=== PATIENT | male | born 1980 | race Caucasian/White ===

== ENCOUNTER 2019-08-23 06:21 | Day surgery (SDC) | payer OTHER ==
[~2019-08-23 06:21] MED LIST: Buffered Lidocaine 1% SYRIN* 1 ML/SYRINGE INTRADERM ONE; Dexamethasone IV* 4 MG/ML 1 ML (4 MG) IV SLOW PU ONE; Dexamethasone IV* 4 MG/ML 1 ML (4 MG) ONE; Famotidine IV* 10 MG/ML 2 ML (20 mg) IV ONE; Famotidine IV* 10 MG/ML 2 ML (20 mg) ONE; Lactated Ringers 1000 ML Bag* 1,000 ML IV SCH
[2019-08-23] MEDS ORDERED: ceFAZolin 2 GM PREMIX in ORs 2 GM/50 ML BAG ONE (06:32)
[2019-08-23] MEDS ORDERED: Lidocaine 1% INJ* 10 MG/ML 30 ML SDV ONE ×2 (07:09→08:07)
[2019-08-23] MEDS ORDERED: Bupivacaine 0.25% SDV* 30 ML ONE (07:10)
[2019-08-23] MEDS ORDERED: Dexamethasone IV* 4 MG/ML 1 ML (4 MG) ONE (07:10)
[2019-08-23] MEDS ORDERED: fentaNYL* 50 MCG/ML 2 ML VIAL (100 MCG VIAL) ONE (07:14)
[2019-08-23] MEDS ORDERED: Midazolam* 1 MG/ML 5 ML VIAL (5 MG) ONE (07:14)
[2019-08-23] MEDS ORDERED: Lidocaine 2% PF * 5 ML VIAL ONE (07:15)
[2019-08-23] MEDS ORDERED: Propofol* 10 MG/ML 20 ML BTL ONE (07:15)
[2019-08-23] MEDS ORDERED: KETAMINE HCL* 50 MG/ML 10 ML VIAL ONE (07:38)
[2019-08-23] MEDS ORDERED: Midazolam* 1 MG/ML 2 ML VIAL (2 MG) ONE (07:42)
[2019-08-23 10:16] VITALS: BP 132/79
--- NOTE | 2019-08-24 00:31 | OP ---
DATE OF OPERATION: 08/23/19 [facility] DATE OF : 78 SURGEON: Jong Cedeno DPM ANESTHESIA: MAC local. PRE-OP DIAGNOSIS: Right foot plantar fascitis. POST-OP DIAGNOSIS: Right foot plantar fascitis. OPERATIVE PROCEDURE: Plantar fasciotomy. ESTIMATED BLOOD LOSS: Less than 10 cc. IV FLUIDS: LR 1000 cc. DRAINS: None. SPECIMENS: None. DESCRIPTION OF PROCEDURE: The patient was taken to the operating room was placed in a supine position. Time-out was called and the OR team agreed. The right foot was then blocked with 10 cc of 1% lidocaine plain locally along the incision site as well as at the level of the posterior tibial nerve. The foot was then prepped and draped in a sterile manner. The right foot was then exsanguinated with an Esmarch bandage and the cuff was then inflated to 250 mmHg. Attention was then paid to the plantar aspect of the right foot. Just anterior to the plantar medial calcaneal tubercle, I made a linear incision at the operative site. This was followed by sharp and blunt dissection starting from the epidermis, dermis, and subcutaneous tissue and down to the fascia. Once I got down to the fascia I then identified the medial band of the fascia, I made another incision transecting it carefully and just limiting my excision to the medial band, clearly seeing the medial band that was attached to the plantar medial calcaneal tubercle. This completes the procedure. The moment I saw the underlying muscle belly, I irrigated the site, closed the wound in a layered, anatomical fashion. I injected the site with 8 cc of 0.25% Marcaine plain as well as 8 mg or 2 cc of dexamethasone phosphate. The cuff was then deflated. The foot was placed in a dry sterile dressing. Capillary refill was inspected and there was 1 second time spent to all the 5 toes of the operative foot. The patient was taken to the recovery in stable condition, was later discharged in stable condition as well. I will follow the patient up in 3 days in my office. [id number] #: [id number]
== END 2019-08-23 10:14 | disposition home or self-care (01) ==
LOC: OREAST 06:21
PROVIDERS: ATTEND Podiatrist
DX: M72.2 Plantar fascial fibromatosis (principal); I10 Essential (primary) hypertension; G47.33 Obstructive sleep apnea (adult) (pediatric); Z87.891 Personal history of nicotine dependence
CPT/HCPCS: J0690; J1100; J2250; J2704; J3010; J3490